=== PATIENT | female | born 1985 | race Caucasian/White ===

== ENCOUNTER 2017-10-27 21:15 | Emergency (ER) | payer OTHER ==
[~2017-10-27] VITALS: Ht 170.2 cm; Wt 109.8 kg
[~2017-10-27 21:15] MED LIST: NASAL SPRAY
[2017-10-27 21:20] VITALS: Ht 170.2 cm; Wt 109.8 kg
[2017-10-27 23:00] VITALS: BP 127/86
== END 2017-10-27 23:00 | disposition home or self-care (01) ==
LOC: ED 21:15
DX: L02.415 Cutaneous abscess of right lower limb (principal); Z88.5 Allergy status to narcotic agent
CPT/HCPCS: J0696; J1885

== ENCOUNTER 2018-03-01 20:57 | Emergency (ER) | payer OTHER ==
[~2018-03-01] VITALS: Ht 170.2 cm; Wt 107.0 kg
[2018-03-01 21:00] VITALS: Ht 170.2 cm; Wt 107.0 kg
[2018-03-01 22:52] VITALS: BP 134/76
== END 2018-03-01 22:52 | disposition home or self-care (01) ==
LOC: ED 20:57
DX: R59.0 Localized enlarged lymph nodes (principal); Z88.5 Allergy status to narcotic agent